=== PATIENT | male | born 1935 | race Caucasian/White ===

== ENCOUNTER 2016-11-04 11:31 | Day surgery (SDC) | payer OTHER ==
[2016-10-30 10:40] LABS: BASOPHILS 0.6 %; BASOPHILS ABSOLUTE 0.05 10/3/uL (0.0-0.16); EOSINOPHILS 1.5 %; EOSINOPHILS ABSOLUTE 0.13 10/3/uL (0.0-0.53); HEMATOCRIT 40.5 % (40.0-51.0); HEMOGLOBIN 14.1 g/dL (13.6-17.8); IMMATURE GRANULOCYTES 0.6 %; IMMATURE GRANULOCYTES ABSOLUTE 0.05 10/3/uL (0.0-0.11); LYMPHOCYTES 18.2 %; LYMPHOCYTES ABSOLUTE 1.56 10/3/uL (0.67-4.30); MEAN CORPUS HGB CONC 34.8 g/dL (32.0-36.0); MEAN CORPUSCULAR VOLUME 97.6 fL (80-100); MEAN PLATELET VOLUME 9.9 fL (9.2-13.0); MONOCYTES 7.1 %; MONOCYTES ABSOLUTE 0.61 10/3/uL (0.21-1.20); NEUTROPHILS ABSOLUTE 6.17 10/3/uL (2.02-8.40); PLATELET COUNT 222 10/3/uL (150-400); RBC DISTRIBUTION WIDTH 13.6 % (12.0-16.0); RED CELL COUNT 4.15 10/6/uL (4.7-6.1); WHITE BLOOD CELLS 8.6 10/3/uL (4.5-10.5)
[2016-10-30 10:41] LABS: MANUAL DIFF NO %
[2016-10-30 10:58] LABS: A/G RATIO 1.4 (0.7-1.9); ALBUMIN 3.7 G/DL (3.5-5.0); CALCIUM, SERUM 8.6 MG/DL (8.5-10.4); CHLORIDE, SERUM 106 MMOL/L (96-112); CO2 (CARBON DIOXIDE) 30 MMOL/L (24-34); CREATININE 0.84 MG/DL (0.70-1.30); GFR AFRICAN AMERICAN 95 ML/MIN (>=60); GFR NON AFRICAN AMERICAN 82 ML/MIN (>=60); GLOBULIN 2.7 G/DL (2.5-4.1); GLUCOSE, SERUM 101 MG/DL (60-99); POTASSIUM, SERUM 4.1 MMOL/L (3.5-5.3); SGOT(AST) 15 U/L (5-40); SGPT(ALT) 29 U/L (5-65); SODIUM, SERUM 143 MMOL/L (135-148); TOTAL BILIRUBIN 0.5 MG/DL (0-1.2); TOTAL PROTEIN 6.4 G/DL (6.0-8.5)
[2016-10-30 11:00] LABS: ALKALINE PHOSPHATASE 86 U/L (45-117); BUN (BLOOD UREA NITROGEN) 20 MG/DL (6-23)
--- NOTE | ~2016-11-04 | OP ---
Record Of Operation [facility] [address] [place]. [address] NAME: TRINH SEVILLA : 35 STATUS : [facility]#: [id number] AGE: 81 ADM/REG DATE : 11/04/16 MR#: [id number] REPORT SERV DATE: 11/06/16 DICTATED BY: JONATHAN AVILA DATE: 11/06/16 REPORT STATUS : Draft TRANSCRIBED BY: BOOKER DATE: 11/06/16 DATE OF PROCEDURE: 11/04/2016 PREOPERATIVE DIAGNOSIS: Right inguinal hernia. POSTOPERATIVE DIAGNOSIS: Right indirect and direct inguinal hernia. PROCEDURE PERFORMED: Repair of right inguinal hernia with implantation of mesh. ANESTHESIA: Local MAC. ESTIMATED BLOOD LOSS: Minimal. SPECIMENS REMOVED: None. BRIEF HISTORY: Mr. Sevilla is an 81-year-old gentleman who presents with a large right inguinal protrusion. This has been growing and becoming tender and symptomatic. He presents today for repair. FINDINGS AT TIME OF PROCEDURE: Mr. Sevilla was noted to have both direct and indirect inguinal hernia. The hernias were repaired using an extended piece of Ethicon Prolene Hernia System mesh. DETAILS: Following informed consent, the patient was taken to the operating room and placed supine on the OR table. After successful induction of general endotracheal anesthesia, his abdomen was prepped and draped in the usual sterile fashion. An Ioban adhesive drape was applied. A right lower quadrant oblique skin incision was made. Dissection was carried through skin, subcutaneous tissue, and Yahaira's fascia using cautery. The external oblique aponeurosis was identified as was the external inguinal ring. The external oblique aponeurosis was then sharply incised and opened in direction of its fibers through the external inguinal ring. Spermatic cord was then identified and encircled with a [place] drain to protect the cord structures. The spermatic cord was carefully inspected. Cremasteric muscles were divided and there was no evidence of an indirect inguinal hernia. In the medial epigastric vessels, there was a large direct inguinal hernia. The transversalis fascia fibers overlying this were incised and the preperitoneal space was entered and developed bluntly with a Ray-Jolly sponge. The Ray-Jolly sponge was then removed, and an extended piece of Ethicon Prolene Hernia System mesh was deployed in the preperitoneal space. The anterior onlay portion of the mesh was then opened and secured medially to pubic tubercle using 2-0 Prolene suture. A slit was cut in the mesh to accommodate the spermatic cord, and the slit portion of the mesh was approximated around the spermatic cord using Prolene. The mesh was further fixated on the shelving edge of the ilioinguinal ligament and once the mesh had been properly fixated, we intentionally resected the ilioinguinal nerve to prevent nerve entrapment. The wound was then copiously irrigated. Hemostasis was found to be secure. The external oblique aponeurosis was then reapproximated using a running 2-0 PDS suture. Yahaira's fascia was reapproximated using 3-0 Vicryl. 3-0 Vicryl subdermals were applied followed by 4-0 Monocryl subcuticular suture and Dermabond. Record Of Operation [address] [address] NAME: TRINH SEVILLA : 35 STATUS : [facility]#: [id number] AGE: 81 ADM/REG DATE : 11/04/16 MR#: [id number] REPORT SERV DATE: 11/06/16 DICTATED BY: JONATHAN AVILA DATE: 11/06/16 REPORT STATUS : Draft TRANSCRIBED BY: BOOKER DATE: 11/06/16 At the completion of the case, all sponge and needle counts were correct. The patient was extubated and transferred to recovery room in satisfactory condition, having suffered no apparent perioperative complications. ABDIAS/BOOKER Jonathan Avila M.D. / [id number] CC: Shey Barber M.D.
[~2016-11-04 11:31] MED LIST: BROVANA15 MCG INH; CORICIDI2 OR; FLOMAX4 PO; FLONASE NAS; HYZAAR1 TAB PO; MOBIC7.5 PO; NORCO1 TAB PO; PRAVACHOL40 MG PO; PROAIR HFA INH; PROSCAR5 PO; PROTONIX PO; PROVHFA INH; PULRESP.25 INH; RANITIDINE300 MG PO; SPIRIVA INH; ZESTORETIC PO
[2016-12-28] MEDS ORDERED: NORCO1 TAB PO (12:31)
[2016-12-28] MEDS ORDERED: PROAIR HFA INH (12:31)
[2016-12-28] MEDS ORDERED: PRAVACHOL40 MG PO (12:32)
[2016-12-28] MEDS ORDERED: PROTONIX PO (12:32)
[2016-12-28] MEDS ORDERED: HYZAAR1 TAB PO (12:32)
[2016-12-28] MEDS ORDERED: BROVANA15 MCG INH (12:32)
[2016-12-28] MEDS ORDERED: FLOMAX4 PO (12:32)
[2016-12-28] MEDS ORDERED: PROSCAR5 PO (12:32)
[2016-12-28] MEDS ORDERED: PULRESP.25 INH (12:33)
[2016-12-28] MEDS ORDERED: FLONASE NAS (12:33)
[2016-12-30] MEDS ORDERED: NORCO1 TA1 PO (12:31)
[2016-12-30] MEDS ORDERED: HABIT21 TOP (12:32)
== END 2016-11-04 16:36 | disposition home or self-care (01) ==
LOC: SDC 11:31
PROVIDERS: Surgery
PROC: 0YU50JZ Supplement Right Inguinal Region with Synthetic Substitute, Open Approach (ICD-10-PCS; principal; 2016-11-04 13:15)
DX: K40.90 Unilateral inguinal hernia, without obstruction or gangrene, not specified as recurrent (principal); I10 Essential (primary) hypertension; F17.210 Nicotine dependence, cigarettes, uncomplicated; J44.9 Chronic obstructive pulmonary disease, unspecified; R30.0 Dysuria; I73.9 Peripheral vascular disease, unspecified; Z88.1 Allergy status to other antibiotic agents; Z88.5 Allergy status to narcotic agent; Z79.899 Other long term (current) drug therapy; Z79.891 Long term (current) use of opiate analgesic; Z79.51 Long term (current) use of inhaled steroids
CPT/HCPCS: 80053; 85025; 93005; J0690; J3010